=== PATIENT | female | born 1970 | race Caucasian/White ===

== ENCOUNTER 2025-01-24 10:45 | Outpatient (CLI) | payer BC | END 2025-01-24 10:46 | disposition home or self-care (01) | LOC: CSHLAB 10:45 | PROVIDERS: ATTEND Obstetrics & Gynecology | DX: Z01.810 Encounter for preprocedural cardiovascular examination (principal); N93.9 Abnormal uterine and vaginal bleeding, unspecified | CPT/HCPCS: 80048; 85027; 86850; 86900; 86901; 93005; 93010 ==